=== PATIENT | male | born 1950 | race Hispanic/Latino ===

== ENCOUNTER 2016-12-05 04:30 | Inpatient (IN) | payer OTHER ==
[2016-12-05] MEDS ORDERED: NORMAL SALINE 10 ML SYRINGE FLUSH IVP PRN (04:49)
[2016-12-05] MEDS ORDERED: Sodium Chloride 0.9% 1,000 ML PRIMARY IV ONE ×2 (04:49→13:24)
[2016-12-05] MEDS ORDERED: Ertapenem Inj 1 GM in Sodium Chloride 0.9% 100 ML IV ONE (04:55)
[2016-12-05 04:59] LABS: BLOOD UREA NITROGEN 42 mg/dL (7-22); BUN/CREATININE RATIO 46.66 (6-20); CALCIUM 8.5 mg/dL (8.7-10.7); EST GLOMERULAR FILTRATION > 60 (>60 ml/min/1.73m(2)); SERUM ALBUMIN 3.8 g/dL (3.5-4.8)
[2016-12-05 05:00] LABS: BASOPHILS # (AUTO) 0.02 10*3/UL; BASOPHILS % (AUTO) 0.1 % (0-1); EOSINOPHILS # (AUTO) 0 10*3/UL; EOSINOPHILS % (AUTO) 0 % (0-8); HEMATOCRIT 38.8 % (42.0-52.0); HEMOGLOBIN 12.6 g/dL (14.0-18.0); LYMPHOCYTES # (AUTO) 1.89 10*3/uL; MEAN CORPUSCULAR HEMOGLOBIN 27.2 PG (27-31); MEAN CORPUSCULAR HGB CONC 32.5 g/dL (33-37); MEAN PLATELET VOLUME 9.7 FL (7.4-12.2); MONOCYTES # (AUTO) 1.85 10*3/UL (0.3-0.8); MONOCYTES % (AUTO) 9.7 % (5-15); NEUTROPHILS # (AUTO) 15.17 10*3/UL; NEUTROPHILS % (AUTO) 79.9 % (50-80); RED BLOOD COUNT 4.63 10^6/uL (4.70-6.10)
[2016-12-05] MEDS ORDERED: ERTAPENEM 1 GM VIAL ONE (05:14)
[2016-12-05] MEDS ORDERED: IPRATROPIUM/ALBUTEROL SULFATE 3 ML NEB NEB ONE (05:36)
[2016-12-05 05:46] LABS: WBC MORPHOLOGY COMMENT NORMAL MORPHOLOGY (NORM)
[2016-12-05 05:47] LABS: PLATELET MORPHOLOGY COMMENT NORMAL MORPHOLOGY (NORM); RBC MORPHOLOGY COMMENT NORMAL MORPHOLOGY (NORM)
[2016-12-05 05:55] LABS: ABG BASE EXCESS -5 MMOL/L (-2-2); ABG OXYGEN SATURATION 94 % (90-100); ABG PCO2 32 MMHG (34-38); ABG PO2 70 MMHG (65-75); ALLEN TEST Y; COLLECTION SITE R Rad X1
--- NOTE | 2016-12-05 06:13 | DI ---
HISTORY: Fever and respiratory distress. COMPARISON: None available. FINDINGS: The heart is in the upper limits of normal with slight tortuosity of the dorsal aorta. Th ere is slight accentuation of the pulmonary vasculature in both lower lung mcbride with a band of subs egmental atelectasis in the left lung base. The lung mcbride are otherwise essentially clear. IMPRESSION: 1. Slightly tortuous dorsal aorta. 2. There is slight accentuation of the pulmonary vasculature in both lower lung mcbride with a band of subsegmental atelectasis in the left lung base. Clinical correlation is requested.
--- NOTE | 2016-12-05 08:04 | DI ---
HISTORY: Abdominal pain. Patient is uncooperative. COMPARISON: None available. TECHNIQUE: Multiple helically acquired CT images were obtained through the abdomen without contrast. FINDINGS: Examination demonstrates thickened interstitium within the lung bases. The stomach is unremarkable. The spleen, adrenals and pancreas are unremarkable. There is no eviden ce of stone nor hydronephrosis. A few peripheral vascular calcifications are seen. Mild degenerative changes of the spine are noted. Large and small bowel loops are unremarkable. There are diffuse degenerative changes of the spine. IMPRESSION: 1. Increased interstitial markings within the lung bases. 2. No obstructive uropathy.
--- NOTE | 2016-12-05 08:32 | PDOC ---
Dyspnea HPI - General Chief Complaint: Respiratory Complaint Stated Complaint: RESP DISTRESS Date Seen by Provider: 12/05/16 Time Seen by Provider: 04:36 Source: POSITIVE: Patient, EMS, residential records Exam Limitations: POSITIVE: No limitations Treatment Prior to Arrival: REPORTS: None Nurse's Notes Reviewed & Considered: Yes EMS Report Reviewed & Considered: Verbal - History of Present Illness Initial Comments: The patient is a 66-year-old male who is a resident on the Alzheimer's el at [facility]. He has a long-standing history of dementia, possibly secondary to alcoholism. Patient was noted approximately one hour TODDLER GUIDE to be having some cough and very noisy breathing. He is also noted to be febrile. He was noted to have some emesis on his chin and tongue. Nursing staff reported that he vomited also about 24 hours ago. residential called the ambulance and ambulance brought the patient to the emergency room. On arrival to the emergency room is SaO2 was 84% on 2 L and this went up to around 94% on an FiO2 40% by mask. Paramedics report that they were told by the nursing staff that he may have had some abdominal discomfort yesterday. Patient is a very poor historian because his primary language is Monegasque and he does have dementia. Body Location Affected: REPORTS: Chest Timing: REPORTS: Unknown Duration: <24 hours Severity: Moderate Quality: REPORTS: Other (No obvious pain to the abdomen in the emergency room; intermediate personnel state that the quarried the possibility of abdominal pain earlier yesterday.) Initiating Event: REPORTS: Aspiration (Probable aspiration) Context: REPORTS: Sleep Exacerbated By: DENIES: Exertion, Laying Flat, Coughing Associated Symptoms: REPORTS: Fever, Productive Cough Similar Symptoms Previously: No Recently seen/treated/hospitalized: No Any Prior Injuries Related to Current Complaint?: No - Patient Home Medications Home Medications: Home Medications Acetaminophen [Tylenol] 1 - 2 tab PO Q6H PRN tab 04/01/15 Albuterol Neb Soln 0.083% 2.5 mg NEB QID PRN #1 vial.neb 06/22/16 Amlodipine Besylate [Norvasc] 5 mg PO DAILY #1 tab 06/22/16 Cholecalciferol (Vitamin D3) [Vitamin D3] 1 cap PO QD cap 10/17/16 - Patient Allergies Allergies/Adverse Reactions: Allergies Allergy/AdvReac Type Severity Reaction Status Date / Time amoxicillin Allergy RASH Verified 12/05/16 04:56 Penicillins Allergy RASH Verified 12/05/16 04:56 Past Medical History - heen HEENT History: Denies History Cardiovascular History: Hypertension Respiratory History: Denies History Gastrointestinal History: GERD Genitourinary History: Incontinence Endocrine History: Denies History Musculoskeletal History: Other (please comment) Additional Musculoskeletal History: ABNORMAL GAIT AND MOBILITY Neurological History: Dementia, Other (please comment) 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 Blood Disorders: Denies History Psychiatric History: Denies History History of Sexually Transmitted Diseases: No Cancer History: Denies History In Past Year Been Physically Harmed or Verbally Threatened: No History of MDRO: Unknown History of Other Communicable Diseases: No Tobacco Use: Former Smoker Alcohol Use: Sober Substance Use Type: None Previous Surgical History: No Significant Family History: No pertinent family hx Past Medical History Reviewed: Reviewed - No Changes ROS - Limitations ROS Limitations: Clinical Condition (Patient has dementia and therefore cannot give a good review of systems), Language Barrier (Patient's primary tongue is Monegasque.), Other (please comment) (Cold lateral review of systems obtained from intermediate staff) Constitution: REPORTS: Fever Cardiovascular: REPORTS: Denies Cardiac Symptoms Respiratory: REPORTS: Cough Productive, Shortness Of Breath Neurological: REPORTS: Denies Neuro Symptoms Gastrointestinal: REPORTS: Vomitting Endocrine: REPORTS: Denies Symptoms Musculoskeletal: REPORTS: Denies MS Symptoms Genitourinary: REPORTS: Denies Symptoms Eyes: REPORTS: Denies Symptoms ENT: REPORTS: Denies Symptoms Skin: REPORTS: Denies Skin Symptoms Lympathic: REPORTS: Denies Lympathic Symptoms Immunologic: POSITIVE: Denies Symptoms Psychiatric: POSITIVE: Confusion (Chronically) Dyspnea Physical Exam - General Appearance General Appearance: REPORTS: No Acute Distress (Hypoxic; in some respiratory distress) - HEENT HEENT: POSITIVE: Head Inspection Nml, Eyes Inspection Nml, Ears Inspection Nml, Nose Inspection Nml, Oral/Dental Inspect. Nml, Pharynx Inspect. Nml, PERRL, EOMI - Neck Neck: REPORTS: Normal Inspection, No Carotid Bruit - Respiratory Respiratory: REPORTS: Respiratory Distress, Rales, Rhonchi. DENIES: Prolonged Expirations, Accessory Muscle Use, Retractions, Splinting, Dull on Percussion, Decreased Air Movement, Chest Wall Tenderness, Speaks Broken Sentences, Stridor - Cardiovascular Cardiovascular: REPORTS: Regular Rate and Rhythm, Heart Sounds Normal, Equal Pulses, Strong Pulses, No Murmur, No Gallop, No Friction Rub, No JVD Peripheral Pulses: Radial (R): 2+, Radial (L): 2+, Femoral (R): 2+, Femoral (L) : 2+ - Abdomen Abdomen: Soft: (All Quadrants), Normal Bowel Sounds: (All Quadrants), Denies Tenderness: (All Quadrants), No Splenomegaly: (All Quadrants), No Hepatomegaly: (All Quadrants), No Guarding: (All Quadrants), No Rebound: (All Quadrants), No Palpable Pulse: (All Quadrants), No Palpabale Mass: (All Quadrants), No Distention: (All Quadrants), No Rigidity: (All Quadrants) - Skin Skin: REPORTS: Intact, Normal For Race, Warm, Dry, No Rash - Extremities Extremity: Non-Tender: (All Extremities), Normal ROM: (All Extremities), Normal Inspection: (All Extremities) - Neurological / Psychological Neurological: POSITIVE: Oriented X3, epic specialist Normal As Tested, Motor Normal, Sensation Normal, 5, 6 Dyspnea Progress - Results Reviewed by me Xrays/CTs/US Reviewed by me: Yes Discussed with Radiologist: No Radiology Findings: Chest x-ray shows bilateral lower lobe infiltrates, especially on the left. CT scan of abdomen and pelvis is normal except for interstitial infiltrates in both lung bases. Lab Results Reviewed: Yes (blood cultures drawn) Lab Results:: Laboratory Results 12/05/16 12/05/16 12/05/16 Range/Units 04:59 05:00 05:26 WBC 18.98 H (4.8-10.8) 10^3/uL RBC 4.63 L (4.70-6.10) 10^6/uL Hgb 12.6 L (14.0-18.0) g/dL Hct 38.8 L (42.0-52.0) % MCV 83.8 (80-90) FL MCH 27.2 (27-31) PG MCHC 32.5 L (33-37) g/dL RDW Std Deviation 46.8 (39-50) fL RDW Coeff of Lucia 15.7 H (11.5-14.5) % Plt Count 330 (140-350) 10*3/uL MPV 9.7 (7.4-12.2) FL Immature Gran % (Auto) 0.3 (0-5) % Neut % (Auto) 79.9 (50-80) % Lymph % (Auto) 10.0 (10-50) % Bowman % (Auto) 9.7 (5-15) % Eos % (Auto) 0 (0-8) % Baso % (Auto) 0.1 (0-1) % Immature Gran # (Auto) 0.05 10*3/UL Neut # (Auto) 15.17 10*3/UL Lymph # (Auto) 1.89 10*3/uL Bowman # (Auto) 1.85 H (0.3-0.8) 10*3/UL Eos # (Auto) 0 10*3/UL Baso # (Auto) 0.02 10*3/UL WBC Morphology Comment Normal morphology (NORM) Plt Morphology Comment Normal morphology (NORM) RBC Morph Comment Normal morphology (NORM) ABG pH 7.40 (7.35-7.45) ABG pCO2 32 L (34-38) MMHG ABG pO2 70 (65-75) MMHG ABG HCO3 20 L (22-26) ABG Total CO2 20 L (23-27) MMOL/L ABG O2 Saturation 94 (90-100) % ABG Base Excess -5 L (-2-2) MMOL/L Kevin Test Y FiO2 10lpm simple mask Sodium 148 H (135-145) meq/L Potassium 4.3 (3.8-5.2) meq/L Chloride 111 (98-112) meq/L Carbon Dioxide 22 L (23-33) meq/L Anion Gap 15 (5-20) BUN 42 H (7-22) mg/dL Creatinine 0.9 (0.70-1.50) mg/dL Estimated GFR > 60 (>60 ml/min/1.73m(2)) BUN/Creatinine Ratio 46.66 H (6-20) Glucose 178 H (78-110) mg/dL Calculated Osmolality 320.0 H (267-292) mOsm/kg Lactic Acid 2.1 (0.70-2.10) MMOL/L Calcium 8.5 L (8.7-10.7) mg/dL Total Bilirubin 0.4 (0.3-1.2) mg/dL AST 21 (21-57) IU/L ALT 18 L (21-72) IU/L Alkaline Phosphatase 86 (38-126) IU/L Troponin I < 0.012 (< 0.040) ng/mL Total Protein 6.8 (6.1-8.0) g/dL Albumin 3.8 (3.5-4.8) g/dL Globulin 3.0 (2.50-4.10) g/dL Albumin/Globulin Ratio 1.20 L (1.3-2.0) mg/g - Patient's Progress Pain Medication Addressed: POSITIVE: Not Applicable School/Work Release Addressed: POSITIVE: Not Applicable Re-Examine Time: 07:00 Re-Examine Comment: Patient maintaining saturations with oxygen supplementation. Nebulizer treatments 2 given. Blood cultures drawn and then 1 g of Invanz IV given. Some improvement after neb treatments Re-Examine Time:: 08:15 Re-Examine Comment: Case discussed with Dr. Dupree, hospitalist, and arrangements made for admission Status: POSITIVE: Improved, Re-Examined Air Movement: POSITIVE: Fair Quality Measure Initiative: CAP: POSITIVE: SaO2, Antibiotic(s), BC, CXR or CT - Consult Consult (If Yes, Name of Consulting MD & Time Called): Yes (Dr. Dupree, hospitalist [id number],) Consulting MD will see pt:: POSITIVE: [facility] Admit Counseled: POSITIVE: Patient, RE: Lab Results, RE: Radiology Results, RE: DX, RE : Need for F/U Patient Care Time - Estimated PCT Patient Care Time (In Minutes): 60 Vital Signs - Recent Vital Signs Vital Signs: Vital Signs (Last 8 hours) Temp Pulse Resp BP Pulse Ox 12/05/16 04:30 100.4 F H 151 H 40 H 165/87 90 - VS Reviewed Vital Signs Reviewed: Yes Discharge Clinical Impression: Pneumonia Discharge Disposition: Admit to Inpatient Date Decision to Admit to Inpatient: 12/05/16 Time Decision to Admit to Inpatient: 07:30
[2016-12-05] MEDS ORDERED: LIDOCAINE W/ SODIUM BICARB 0.5 ML SYR SUBD PRN (09:29)
[2016-12-05] MEDS ORDERED: ACETAMINOPHEN 325 MG TABLET PO PRN (09:29)
[2016-12-05] MEDS ORDERED: ALBUTEROL SULFATE 2.5 MG/3 ML NEB PRN (09:29)
[2016-12-05] MEDS ORDERED: ONDANSETRON 4 MG/2 ML VIAL IVP PRN (09:29)
--- NOTE | 2016-12-05 10:38 | PDOC ---
History and Physical - History of Present Illness Date and Time of Service: 12/05/2016, 1040 Chief Complaint: Altered History of Present Illness: This is a 66-year-old family Bengali-speaking male who has been placed in [facility] a while back due to dementia, alcohol abuse, tobacco abuse issues. He comes in today brought in by ambulance from the halfway having been found apparently to have abdominal pain and also to be hypoxic. He could not provide a history. It was felt that he probably had pneumonia although his chest x-ray was negative for infiltrate. The CT of his abdomen and pelvis, was done due to in part to complaints of abdominal pain yesterday, and some vomiting apparently that was witnessed. He had a fever at the time of presentation. On my exam, he cannot provide any history of present illness, is requiring oxygen, which she is normally not on, but does not have an active cough. He is not able to follow commands. He is alert. History was severely compromised by his dementia. Given his fever, oxygen requirement, lack of infiltrate, I think we need to do further investigative workup to make sure there is no pulmonary emboli or an infiltrate noticed on CT scan. Atelectasis was noted in the base of the lungs on the CT scan of the abdomen and pelvis. Influenza studies were done on the inpatient side which were negative. This could also be a COPD exacerbation. Past Medical History Medical History: 1. 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 2. History of tobacco abuse. 3. Reportedly, patient had extrapyramidal syndrome. He is no longer on Sinemet and has not been on that for quite some time now. 4. Urinary incontinence Surgical History: I cannot obtain this from the patient due to his dementia. Pertinent Family History: I cannot obtain this information from the patient due to his dementia. Past Social History: From my review of the medical record, the patient had a history of smoking and drinking heavily prior to his admission to [facility]. Apparently, he is and his lives in [place], [place]. Tobacco Use: Former Smoker Substance Use Type: None Alcohol Use: None (Currently none, but did use in the past.) Medication / Allergies Home Medications: Home Medications Medication Instructions Recorded Confirmed Type Acetaminophen [Tylenol] 1 - 2 tab PO Q6H PRN tab 04/01/15 06/21/16 History Albuterol Neb Soln 0.083% 2.5 mg NEB QID PRN #1 vial.neb 06/22/16 Rx Amlodipine Besylate [Norvasc] 5 mg PO DAILY #1 tab 06/22/16 Rx Cholecalciferol (Vitamin D3) 1 cap PO QD cap 10/17/16 History [Vitamin D3] Allergies/Adverse Reactions: Allergies Allergy/AdvReac Type Severity Reaction Status Date / Time amoxicillin Allergy RASH Verified 12/05/16 04:56 Penicillins Allergy RASH Verified 12/05/16 04:56 Review of Systems - Review of Systems ROS Unobtainable: Due to Mental Status (I cannot obtain a review of systems due to the patient's dementia.) Exam - Vitals Vital Signs: Vital Signs Temperature 97.8 F Temperature Source Temporal Artery Scan Pulse Rate [Pulse Oximeter] 129 Pulse Rate [Telemetry] 151 Pulse Rate 127 Respiratory Rate 24 Blood Pressure [Right Arm] 165/87 Blood Pressure 132/84 Pulse Ox 99 Oxygen Flow Rate 10 Oxygen Delivery Method Mask-Simple Height 5 ft 6 in Weight 147 lb 9.6 oz - General General Appearance: POSITIVE: Cooperative, Mild Distress - Head Head Exam: POSITIVE: Normal Inspection, Normocephalic, Atraumatic - Eye Eye Exam: POSITIVE: No Scleral Icterus - ENT ENT Exam: POSITIVE: Mucous Membranes Dry - Respiratory Respiratory Exam: POSITIVE: Clear to Auscultation - Bilaterally, Breathing Non Labored - Cardiovascular Cardiovascular Exam: POSITIVE: No Murmur, No Clicks, No Gallops, No Rubs, Tachycardia - GI/Abdominal GI/Abdominal Exam: POSITIVE: Normal Bowel Sounds, Non Tender, Non Distended, Soft - Rectal Rectal Exam: POSITIVE: Deferred - External Exam: POSITIVE: Deferred Exam: POSITIVE: Deferred - Extremities Extremities Exam: POSITIVE: No Clubbing Present, No Edema Present, No Cyanosis Present - Neurological Neurological Exam: POSITIVE: Alert, No Facial Droop, Moves All Extremities Equally - Integumentary Integumentary Exam: POSITIVE: Normal Color, Warm, Dry, Intact Results - Labs CBC and BMP: 12/05/16 05:00 12/05/16 04:59 Labs - Last 24 Hours: Laboratory Results 12/05/16 12/05/16 12/05/16 Range/Units 04:59 05:00 05:26 WBC 18.98 H (4.8-10.8) 10^3/uL RBC 4.63 L (4.70-6.10) 10^6/uL Hgb 12.6 L (14.0-18.0) g/dL Hct 38.8 L (42.0-52.0) % MCV 83.8 (80-90) FL MCH 27.2 (27-31) PG MCHC 32.5 L (33-37) g/dL RDW Std Deviation 46.8 (39-50) fL RDW Coeff of Lucia 15.7 H (11.5-14.5) % Plt Count 330 (140-350) 10*3/uL MPV 9.7 (7.4-12.2) FL Immature Gran % (Auto) 0.3 (0-5) % Neut % (Auto) 79.9 (50-80) % Lymph % (Auto) 10.0 (10-50) % [place] % (Auto) 9.7 (5-15) % Eos % (Auto) 0 (0-8) % Baso % (Auto) 0.1 (0-1) % Immature Gran # (Auto) 0.05 10*3/UL Neut # (Auto) 15.17 10*3/UL Lymph # (Auto) 1.89 10*3/uL [place] # (Auto) 1.85 H (0.3-0.8) 10*3/UL Eos # (Auto) 0 10*3/UL Baso # (Auto) 0.02 10*3/UL WBC Morphology Comment Normal morphology (NORM) Plt Morphology Comment Normal morphology (NORM) RBC Morph Comment Normal morphology (NORM) ABG pH 7.40 (7.35-7.45) ABG pCO2 32 L (34-38) MMHG ABG pO2 70 (65-75) MMHG ABG HCO3 20 L (22-26) ABG Total CO2 20 L (23-27) MMOL/L ABG O2 Saturation 94 (90-100) % ABG Base Excess -5 L (-2-2) MMOL/L Kevin Test Y FiO2 10lpm simple mask Sodium 148 H (135-145) meq/L Potassium 4.3 (3.8-5.2) meq/L Chloride 111 (98-112) meq/L Carbon Dioxide 22 L (23-33) meq/L Anion Gap 15 (5-20) BUN 42 H (7-22) mg/dL Creatinine 0.9 (0.70-1.50) mg/dL Estimated GFR > 60 (>60 ml/min/1.73m(2)) BUN/Creatinine Ratio 46.66 H (6-20) Glucose 178 H (78-110) mg/dL Calculated Osmolality 320.0 H (267-292) mOsm/kg Lactic Acid 2.1 (0.70-2.10) MMOL/L Calcium 8.5 L (8.7-10.7) mg/dL Total Bilirubin 0.4 (0.3-1.2) mg/dL AST 21 (21-57) IU/L ALT 18 L (21-72) IU/L Alkaline Phosphatase 86 (38-126) IU/L Troponin I < 0.012 (< 0.040) ng/mL Total Protein 6.8 (6.1-8.0) g/dL Albumin 3.8 (3.5-4.8) g/dL Globulin 3.0 (2.50-4.10) g/dL Albumin/Globulin Ratio 1.20 L (1.3-2.0) mg/g - Imaging Status: Image Reviewed by Me (Chest x-ray, on my view, negative for pneumonia. CT scan of the abdomen and pelvis was done, it appeared normal on my review. The radiologist felt it was normal other than some atelectasis in the lower lung base.) Assessment and Plan - Patient Problems (1) Respiratory insufficiency Current Visit: Yes Status: Acute (2) Fever Current Visit: Yes Status: Acute Qualifiers: Fever type: unspecified Qualified Description: Fever, unspecified fever cause Qualifier Code(s): (R50.9) Fever, unspecified (3) Tachycardia Current Visit: Yes Status: Acute (4) Alcoholic dementia Current Visit: Yes Status: Acute Qualifiers: Dementia behavioral disturbance: without behavioral disturbance Qualified Description: Dementia associated with alcoholism without behavioral disturbance Qualifier Code(s): (F10.97) Alcohol use, unspecified with alcohol-induced persisting dementia (5) History of tobacco abuse Current Visit: Yes Status: Acute (6) Urinary incontinence Current Visit: Yes Status: Acute Qualifiers: Urinary Incontinence type: unspecified incontinence Qualified Description: Urinary incontinence, unspecified type Qualifier Code(s): ( R32) Unspecified urinary incontinence - Assessment / Plan Additional Assessment/Plan Details: Admit the patient. This certainly could be pneumonia, but I don't have any proof of that radiographically at this point, despite the white blood cell count elevation, fever, tachycardia, this could still be pulmonary emboli and no infiltrate was noted on chest x-ray. Influenza studies were thankfully negative. IV fluids. Could be a COPD exacerbation and I think antibiotics and steroids may be the dawson here to help the patient get better as well as oxygen as indicated. Overall prognosis is very guarded. His pneumonia severity index is 109, class for pneumonia with a mortality of 8.2%. Check labs tomorrow. Try to get hold of family to discuss further with him.
[2016-12-05] MEDS ORDERED: Levofloxacin 750mg (Premix) 750 MG in Dextrose 1 BAG IV ONE (10:50)
[2016-12-05] MEDS: Sodium Chloride 0.9% 1,000 ML PRIMARY IV SCH ×2 (11:07→17:40)
--- NOTE | 2016-12-05 11:43 | EKG ---
[address] [place] [address] Measurements Intervals [place] Rate: 120 P: 69 [place]: 133 QRS: -72 QRSD: 125 T: 57 QT: 334 QTc: 405 Interpretive Statements SINUS TACHYCARDIA RIGHT BUNDLE BRANCH BLOCK LEFT ANTERIOR FASCICULAR BLOCK [QRS AXIS <= -45, QR IN I, RS IN II] No previous ECG available for comparison Electronically Signed On 12-05-16 16:02:35 MDT by Yoel Combs [email or web address]
[2016-12-05] MEDS: AmLODIPine Tab 5 MG TABLET PO SCH (12:06)
[2016-12-05] MEDS: methylPREDNISolone 125 MG/2 ML VIAL IVP SCH ×2 (13:54→19:31)
--- NOTE | 2016-12-05 16:50 | DI ---
CT ANGIOGRAM OF THE CHEST, 12/05/2016 10:08 AM : Clinical History: Shortness of breath. Previous Exam: None at this facility. Scans are performed from the base of the neck to the lower lung bases following IV administration of 65 mL of Isovue 300. Proprietary automated bolus tracking software was used to verify the timing of t he injection. There are artifacts present on these scans because the patient could not hold his breat h or at least could not understand instructions to hold his breath, and both arms were positioned at his side. The base of the neck and thoracic inlet are normal. There are no abnormal axillary, supraclavicular, mediastinal, or hilar nodes. Coronary artery calcifications are present in the LAD and in the left ma instem. The heart size is normal. The pulmonary arteries are normal. There is no pulmonary arterial h ypertension. There is no evidence of pulmonary embolism out to the third order branches. The smaller branches are obscured by artifacts. There are no infiltrates or effusions. There are bullae in the le ft upper lobe indicating bullous emphysema. There are punctate calcifications in both lungs measuring in size between 3-5 mm consistent with old granulomatous disease. Both adrenal glands and the spleen as well as the visualized portions of the liver and pancreas are normal. READIN. The patient was breathing during this exam and both arms are positioned at his side. Therefore, t he sensitivity and specificity of this exam is diminished. 2. There is no evidence of pulmonary arterial hypertension or pulmonary embolism at least to the thi rd order branches. 3. Coronary artery disease. Old granulomatous disease.
[2016-12-06] MEDS: Sodium Chloride 0.9% 1,000 ML PRIMARY IV SCH ×3 (01:52→23:02)
[2016-12-06] MEDS: methylPREDNISolone 125 MG/2 ML VIAL IVP SCH ×3 (02:03→15:49)
[2016-12-06] MEDS: NORMAL SALINE 10 ML SYRINGE FLUSH IVP PRN ×2 (02:04→08:30)
[2016-12-06] MEDS: AmLODIPine Tab 5 MG TABLET PO SCH (08:30)
[2016-12-06] MEDS ORDERED: Levofloxacin 750mg (Premix) 750 MG in Dextrose 1 BAG IV SCH (09:00)
--- NOTE | 2016-12-06 09:16 | DI ---
CT HEAD SCAN WITHOUT IV CONTRAST, 12/06/2016 7:30 AM : Clinical History: Altered mental status. Previous Exam: 09/06/2016; 09/23/2016 (CT angiogram of the [place]), and an MRI brain scan w ithout contrast on 09/22/2016.. Scans are obtained from the foramen magnum to the vertex without IV contrast. The fourth ventricle is of normal size, shape, position and contour. The third and lateral ventricles are moderately dilated but are otherwise normal. There is no evidence of an acute intracranial hemor rhagic or bland infarct. There are old lacunar infarcts involving the right thalamus, the body of the right caudate nucleus, and these were present on the MRI scan. There are multiple punctate periventr icular white matter lucencies bilaterally that extend into the watershed territory, consistent with s mall vessel ischemic disease. This amount of ischemic disease is appropriate for the patient's age. T here is diffuse moderately severe cerebellar, brainstem, and cerebral atrophy. This pattern is typica lly associated with patients who have chronic alcohol or Dilantin usage. There are no extracerebral m antles or shift of the midline structures. Bone window evaluation is normal. The paranasal sinuses ar e normal. READIN. There is no acute hemorrhagic or bland infarct. 2. Old lacunar infarcts of the body of the right caudate nucleus and the right thalamus. 3. Small vessel ischemic disease. 4. Diffuse cerebellar, brainstem, and cerebral atrophy. This typically is associated with chronic al cohol or Dilantin usage.
[2016-12-06] MEDS ORDERED: Pantoprazole Inj 40 MG in Normal Saline Flush 10 ML IVP ONE (15:21)
[2016-12-06 15:39] LABS: HEMATOCRIT 28.8 % (42.0-52.0); HEMOGLOBIN 9.1 g/dL (14.0-18.0); MEAN CORPUSCULAR HEMOGLOBIN 26.6 PG (27-31); MEAN CORPUSCULAR HGB CONC 31.6 g/dL (33-37); MEAN PLATELET VOLUME 9.4 FL (7.4-12.2); RED BLOOD COUNT 3.42 10^6/uL (4.70-6.10)
[2016-12-06 15:50] LABS: BLOOD UREA NITROGEN 21 mg/dL (7-22); CALCIUM 8.1 mg/dL (8.7-10.7); EST GLOMERULAR FILTRATION > 60 (>60 ml/min/1.73m(2))
--- NOTE | 2016-12-06 16:46 | PDOC(PROG) ---
Date and Time of Service: 12/06/2016, 1640 Interval History: Confused, complaining of some abdominal pain. Through the afternoon, the patient developed some very dark and bloody stool which was confirmed by Hemoccult. He then had emesis with coffee-ground emesis. I spoke with his , Tri, at [phone], and we discussed the patient's current medical condition, his underlying chronic alcoholic dementia, and what appears to be an active bleed, probably a peptic ulcer or duodenal ulcer. After significant discussion of risks and benefits of workup with EGD for surgical consultation, Tri felt that the patient's wish in this situation would be to proceed with the most conservative care and stay away from aggressive care. She still stated to me that she felt that he would be okay if he did pass away from a condition like this as he did not want to live in a fpc long-term, and he has underlying severe alcoholic dementia that is not getting better. She does not want me to proceed with any surgical consultation or EGD at this time. She is okay with Protonix. Objective : Data - Labs CBC and BMP: 12/06/16 15:34 12/06/16 15:34 Labs - Last 24 Hours: Laboratory Results 12/06/16 12/06/16 Range/Units 14:49 15:34 WBC 13.99 H (4.8-10.8) 10^3/uL RBC 3.42 L (4.70-6.10) 10^6/uL Hgb 9.1 L (14.0-18.0) g/dL Hct 28.8 L (42.0-52.0) % MCV 84.2 (80-90) FL MCH 26.6 L (27-31) PG MCHC 31.6 L (33-37) g/dL RDW Std Deviation 45.8 (39-50) fL RDW Coeff of Lucia 15.4 H (11.5-14.5) % Plt Count 239 (140-350) 10*3/uL MPV 9.4 (7.4-12.2) FL Sodium 142 (135-145) meq/L Potassium 3.5 L (3.8-5.2) meq/L Chloride 110 (98-112) meq/L Carbon Dioxide 23 (23-33) meq/L Anion Gap 9 (5-20) BUN 21 (7-22) mg/dL Creatinine 0.6 L (0.70-1.50) mg/dL Estimated GFR > 60 (>60 ml/min/1.73m(2)) BUN/Creatinine Ratio 35.00 H (6-20) Glucose 166 H (78-110) mg/dL Calculated Osmolality 300.0 H (267-292) mOsm/kg Calcium 8.1 L (8.7-10.7) mg/dL Stool Occult Blood Positive (NEGATIVE) Objective : Exam - General General Appearance: Cooperative Additional General Exam Details: Vital Signs - Last Taken Temperature 98.2 F 12/06/16 16:10 Pulse Rate 116 H 12/06/16 16:10 Respiratory Rate 24 12/06/16 16:10 Blood Pressure 158/88 12/06/16 16:10 Pulse Ox 93 12/06/16 16:10 Wheezing. - Eye Eye Exam: No Scleral Icterus - Respiratory Respiratory Exam: Decreased Breath Sounds, Wheezes, Coarse Breath Sounds - Cardiovascular Cardiovascular Exam: RRR, No Murmur, No Clicks, No Gallops, No Rubs, No JVD - GI/Abdominal GI/Abdominal Exam: Normal Bowel Sounds, Non Distended, Soft Additional GI/Abdominal Exam Details: Tender and right upper quadrant and midepigastric region. - Extremities Extremities Exam: No Clubbing Present, No Edema Present, No Cyanosis Present - Neurological Neurological Exam: Alert, No Facial Droop, Speech Intact / Clear, Moves All Extremities Equally Additional Neurological Exam Details: Not oriented to place, time, or situation. Assessment and Plan - Patient Problems (1) GI bleed Current Visit: Yes Status: Acute (2) COPD exacerbation Current Visit: Yes Status: Acute (3) Acute blood loss anemia Current Visit: Yes Status: Acute (4) Respiratory insufficiency Current Visit: Yes Status: Acute (5) Tachycardia Current Visit: Yes Status: Acute (6) Alcoholic dementia Current Visit: Yes Status: Acute Qualifiers: Dementia behavioral disturbance: without behavioral disturbance Qualified Description: Dementia associated with alcoholism without behavioral disturbance Qualifier Code(s): (F10.97) Alcohol use, unspecified with alcohol-induced persisting dementia (7) History of tobacco abuse Current Visit: Yes Status: Acute (8) Urinary incontinence Current Visit: Yes Status: Acute Qualifiers: Urinary Incontinence type: unspecified incontinence Qualified Description: Urinary incontinence, unspecified type Qualifier Code(s): ( R32) Unspecified urinary incontinence (9) Fever Current Visit: Yes Status: Resolved Qualifiers: Fever type: unspecified Qualified Description: Fever, unspecified fever cause Qualifier Code(s): (R50.9) Fever, unspecified - Assessment / Plan Additional Assessment/Plan Details: This very complex situation in which we have a patient with severe alcoholic dementia, who is been in the fpc for some time and will not be getting better. He had wishes for no CPR but did not have any decisions made for procedures, antibiotics, or surgeries. I spoke to his , and she stated that she did not think the patient would want anything that would prolong his time in the fpc with his dementia. She requested that I treat him conservatively with Protonix and medications for this GI bleed, but to not proceed with surgical consultation or EGD. I'm inclined at this time to agree that that would be reasonable management for this patient given his the long- term debilitating disease that he has and the overall course of his time in the fpc. I will also inform the patient's primary care provider of this. Overall prognosis very guarded. Likely the patient will . Continue Levaquin for pneumonia but stopped steroids in the setting of a GI bleed. We'll write for pain medications given that he is complaining of some abdominal pain. Keep nothing by mouth for now. Also in addition to Protonix and octreotide.
[2016-12-06] MEDS: OCTREOTIDE ACETATE 50 MCG/1 ML VIAL OR AMP IVP SCH (17:22)
[2016-12-06] MEDS: Pantoprazole Inj 40 MG in Normal Saline Flush 10 ML IVP SCH (21:00)
[2016-12-07] MEDS: Sodium Chloride 0.9% 1,000 ML PRIMARY IV SCH ×3 (01:48→21:55)
[2016-12-07] MEDS: OCTREOTIDE ACETATE 50 MCG/1 ML VIAL OR AMP IVP SCH ×3 (01:48→16:56)
[2016-12-07 06:20] LABS: HEMATOCRIT 24.4 % (42.0-52.0); HEMOGLOBIN 7.7 g/dL (14.0-18.0); MEAN CORPUSCULAR HEMOGLOBIN 26.8 PG (27-31); MEAN CORPUSCULAR HGB CONC 31.6 g/dL (33-37); RED BLOOD COUNT 2.87 10^6/uL (4.70-6.10)
[2016-12-07 06:31] LABS: BLOOD UREA NITROGEN 20 mg/dL (7-22); BUN/CREATININE RATIO 28.57 (6-20); CALCIUM 7.8 mg/dL (8.7-10.7); EST GLOMERULAR FILTRATION > 60 (>60 ml/min/1.73m(2))
[2016-12-07] MEDS ORDERED: predniSONE Tab 20 MG, predniSONE Tab 10 MG PO SCH ×2 (09:00)
[2016-12-07] MEDS: Levofloxacin 750mg (Premix) 750 MG in Dextrose 1 BAG IV SCH (09:10)
[2016-12-07] MEDS: Pantoprazole Inj 40 MG in Normal Saline Flush 10 ML IVP SCH (09:11)
[2016-12-07] MEDS: AmLODIPine Tab 5 MG TABLET PO SCH (09:12)
[2016-12-07] MEDS: HYDROmorphone 2 MG/1 ML IVP PRN (11:24)
--- NOTE | 2016-12-07 13:15 | PDOC(PROG) ---
Date and Time of Service: 12/07/2016, 1314 Interval History: Complains of pain in his abdomen, once to drink water. Otherwise history is compromised by his dementia. I spoke to the patient's in depth yesterday, please see yesterday's note. On a conservative manner of treatment, I think we should continue Protonix and octreotide. Blood is not low enough at this point to do transfusion, but I do think it would be prudent to do a CT scan of the abdomen and pelvis to see if there is any source of bleeding there that may change prognosis. If for example, the prognosis is quite poor, we may consider management of pain with opiates parenterally. Objective : Data - Labs CBC and BMP: 12/07/16 05:45 12/07/16 05:45 Labs - Last 24 Hours: Laboratory Results 12/06/16 12/06/16 12/07/16 Range/Units 14:49 15:34 05:45 WBC 13.99 H 10.56 (4.8-10.8) 10^3/uL RBC 3.42 L 2.87 L (4.70-6.10) 10^6/uL Hgb 9.1 L 7.7 L (14.0-18.0) g/dL Hct 28.8 L 24.4 L (42.0-52.0) % MCV 84.2 85.0 (80-90) FL MCH 26.6 L 26.8 L (27-31) PG MCHC 31.6 L 31.6 L (33-37) g/dL RDW Std Deviation 45.8 46.3 (39-50) fL RDW Coeff of Lucia 15.4 H 15.5 H (11.5-14.5) % Plt Count 239 224 (140-350) 10*3/uL MPV 9.4 10.0 (7.4-12.2) FL Sodium 142 143 (135-145) meq/L Potassium 3.5 L 3.9 (3.8-5.2) meq/L Chloride 110 112 (98-112) meq/L Carbon Dioxide 23 23 (23-33) meq/L Anion Gap 9 8 (5-20) BUN 21 20 (7-22) mg/dL Creatinine 0.6 L 0.7 (0.70-1.50) mg/dL Estimated GFR > 60 > 60 (>60 ml/min/1.73m(2)) BUN/Creatinine Ratio 35.00 H 28.57 H (6-20) Glucose 166 H 125 H (78-110) mg/dL Calculated Osmolality 300.0 H 299.0 H (267-292) mOsm/kg Calcium 8.1 L 7.8 L (8.7-10.7) mg/dL Stool Occult Blood Positive (NEGATIVE) Objective : Exam - General General Appearance: No Acute Distress, Cooperative Additional General Exam Details: Vital Signs - Last Taken Temperature 97.4 F 12/07/16 07:03 Pulse Rate 89 12/07/16 07:03 Respiratory Rate 20 12/07/16 07:03 Blood Pressure 115/72 12/07/16 07:03 Pulse Ox 93 12/07/16 07:03 - Eye Eye Exam: No Scleral Icterus - Respiratory Respiratory Exam: Clear to Auscultation - Bilaterally, Breathing Non Labored - Cardiovascular Cardiovascular Exam: RRR, No Murmur, No Clicks, No Gallops, No Rubs - GI/Abdominal GI/Abdominal Exam: Normal Bowel Sounds, Non Distended, Soft Additional GI/Abdominal Exam Details: Tender to palpation mid epigastric and right lower and mid quadrant. - Extremities Extremities Exam: No Clubbing Present, No Edema Present, No Cyanosis Present - Neurological Neurological Exam: Alert, No Facial Droop, Speech Intact / Clear, Moves All Extremities Equally Additional Neurological Exam Details: Altered and has no orientation to place, time, or situation. Assessment and Plan - Patient Problems (1) GI bleed Current Visit: Yes Status: Acute Qualifiers: GI bleed type/associated pathology: unspecified gastrointestinal hemorrhage type Qualified Description: Gastrointestinal hemorrhage, unspecified gastrointestinal hemorrhage type Qualifier Code(s): (K92.2) Gastrointestinal hemorrhage, unspecified (2) COPD exacerbation Current Visit: Yes Status: Acute (3) Acute blood loss anemia Current Visit: Yes Status: Acute (4) Respiratory insufficiency Current Visit: Yes Status: Acute (5) Tachycardia Current Visit: Yes Status: Acute (6) Alcoholic dementia Current Visit: Yes Status: Acute Qualifiers: Dementia behavioral disturbance: without behavioral disturbance Qualified Description: Dementia associated with alcoholism without behavioral disturbance Qualifier Code(s): (F10.97) Alcohol use, unspecified with alcohol-induced persisting dementia (7) History of tobacco abuse Current Visit: Yes Status: Acute (8) Urinary incontinence Current Visit: Yes Status: Acute Qualifiers: Urinary Incontinence type: unspecified incontinence Qualified Description: Urinary incontinence, unspecified type Qualifier Code(s): ( R32) Unspecified urinary incontinence - Assessment / Plan Additional Assessment/Plan Details: At this point, I think a CT scan of the abdomen and pelvis may help out prognostically for the patient. For example if there is a perforation or something that we cannot treat, treating the patient's primary symptoms of pain and discomfort would seem appropriate given his extensive problems with dementia and overall decline. Hold off on blood transfusion today. Check CBC tomorrow. Continue Protonix and octreotide to try and stop bleed. The patient's Tri, was quite clear that she did not want any extreme measures or surgical procedures to be done on this patient given his poor prognosis with advanced alcoholic dementia.
--- NOTE | 2016-12-07 14:53 | DI ---
CT ABDOMEN SCAN WITH IV CONTRAST, 12/07/2016 1:11 PM : Clinical History: GI bleed. Abdominal pain. Previous Exam: 12/05/2016. Comparison is also made with a CT angiogram of the chest from 12/05/2016. Scans are performed from the lower lung bases through the liver and kidneys with IV contrast. 75 ml o f Isovue 300 was injected IV. Small bilateral pleural effusions are present. The liver is normal. 1-2 mm radiodensity in the depend ent portion of the gallbladder and this may represent a small gallstone. There is no thickening of th e gallbladder wall or lucency to indicate acute cholecystitis. The stomach is moderately dilated. The re are prior CT scans where the stomach was given more dilated (CTA chest, 10/07/2016). On that study and the current exam, the posterior wall of the fundus has the appearance of marked thickening of the mucosa. This can be an artifact secondary to incomplete distention of the fundus of the stomach, but acute gastritis localized to the fundus cannot be excluded. There is also increased density in the d istal esophagus roughly 2 cm proximal to the diaphragm and an esophageal lesion cannot be excluded. T here is no evidence of esophageal or gastric varices. There is no abnormality of the spleen, pancreas , and adrenal glands. Both kidneys are normal in size, shape, position and contour. There is no hydro nephrosis or hydroureter. No renal or ureteral calculi are present. There are no abnormal retrocrural or periaortic nodes. No ascites is present. READIN. The posterior gastric wall in the fundus is substantially thickened compared to the remaining por tions of the stomach. This may represent an artifact secondary to incomplete distention of the fundus , but an acute gastritis cannot entirely be excluded. There is a focus of increased density in the di stal esophagus roughly 2 cm from the GE junction. This may also be within normal limits but an esopha geal lesion also cannot entirely be excluded. There are no esophageal or gastric varices. 2. The remainder of the study is normal. CT PELVIS SCAN WITH IV CONTRAST, 12/07/2016 1:11 PM: Clinical History: See above. Previous Exam: None at this facility. Scans are performed from just superior to the umbilicus to the symphysis pubis with IV contrast. This is the same bolus of contrast used for the CT scans of the abdomen. Scans through the lower abdomen and pelvis show no masses or abnormal fluid collections. There is no adenopathy. The appendix is normal. The small bowel, terminal ileum, and ileocecal valve are normal. The colon is also normal. There are no hernias. READING: Normal CT scan of the pelvis.
[2016-12-08] MEDS ORDERED: OCTREOTIDE ACETATE 50 MCG/1 ML VIAL OR AMP ONE (00:20)
[2016-12-08] MEDS: OCTREOTIDE ACETATE 50 MCG/1 ML VIAL OR AMP IVP SCH ×4 (00:40→22:38)
[2016-12-08] MEDS: Sodium Chloride 0.9% 1,000 ML PRIMARY IV SCH (05:16)
[2016-12-08 06:40] LABS: HEMATOCRIT 24.9 % (42.0-52.0); HEMOGLOBIN 7.8 g/dL (14.0-18.0); MEAN CORPUSCULAR HEMOGLOBIN 26.4 PG (27-31); MEAN CORPUSCULAR HGB CONC 31.3 g/dL (33-37); MEAN PLATELET VOLUME 9.6 FL (7.4-12.2); RED BLOOD COUNT 2.96 10^6/uL (4.70-6.10)
[2016-12-08 06:57] LABS: BLOOD UREA NITROGEN 14 mg/dL (7-22); CALCIUM 7.5 mg/dL (8.7-10.7); EST GLOMERULAR FILTRATION > 60 (>60 ml/min/1.73m(2))
[2016-12-08 07:05] LABS: HEMOGLOBIN A1C 6.43 % (4.2-6.0)
[2016-12-08] MEDS: HYDROmorphone 2 MG/1 ML IVP PRN ×3 (07:38→20:52)
[2016-12-08] MEDS: Levofloxacin 750mg (Premix) 750 MG in Dextrose 1 BAG IV SCH (09:16)
[2016-12-08] MEDS: AmLODIPine Tab 5 MG TABLET PO SCH (09:16)
[2016-12-08] MEDS ORDERED: OCTREOTIDE ACETATE 50 MCG/1 ML VIAL OR AMP IVP SCH (12:04)
[2016-12-08] MEDS: NORMAL SALINE 10 ML SYRINGE FLUSH IVP PRN ×3 (14:18→22:37)
--- NOTE | 2016-12-08 16:06 | PDOC(PROG) ---
Date and Time of Service: 12/08/2016, 1604 Interval History: Still has pain in his abdomen. His tolerating clear liquids and does not have any hematemesis. Blood counts look about the same. CT scan results noted and I discussed with the patient's , and she agrees at this point and states do not do any further workup and keep the patient comfortable. Objective : Data - Labs CBC and BMP: 12/08/16 05:46 12/08/16 05:46 Labs - Last 24 Hours: Laboratory Results 12/08/16 Range/Units 05:46 WBC 8.54 (4.8-10.8) 10^3/uL RBC 2.96 L (4.70-6.10) 10^6/uL Hgb 7.8 L (14.0-18.0) g/dL Hct 24.9 L (42.0-52.0) % MCV 84.1 (80-90) FL MCH 26.4 L (27-31) PG MCHC 31.3 L (33-37) g/dL RDW Std Deviation 45.0 (39-50) fL RDW Coeff of Lucia 15.2 H (11.5-14.5) % Plt Count 210 (140-350) 10*3/uL MPV 9.6 (7.4-12.2) FL Sodium 135 (135-145) meq/L Potassium 3.4 L (3.8-5.2) meq/L Chloride 104 (98-112) meq/L Carbon Dioxide 25 (23-33) meq/L Anion Gap 6 (5-20) BUN 14 (7-22) mg/dL Creatinine 0.7 (0.70-1.50) mg/dL Estimated GFR > 60 (>60 ml/min/1.73m(2)) BUN/Creatinine Ratio 20.00 (6-20) Glucose 78 (78-110) mg/dL Mean Blood Glucose 128.119 mg/dL Hemoglobin A1c 6.43 H (4.2-6.0) % Calculated Osmolality 279.0 (267-292) mOsm/kg Calcium 7.5 L (8.7-10.7) mg/dL Objective : Exam - General General Appearance: No Acute Distress, Cooperative Additional General Exam Details: Vital Signs - Last Taken Temperature 97.8 F 12/08/16 11:12 Pulse Rate 87 12/08/16 11:12 Respiratory Rate 20 12/08/16 11:12 Blood Pressure 134/73 12/08/16 11:12 Pulse Ox 93 12/08/16 11:12 - Eye Eye Exam: No Scleral Icterus - Respiratory Respiratory Exam: Breathing Non Labored, Coarse Breath Sounds - Cardiovascular Cardiovascular Exam: RRR, No Murmur, No Clicks, No Gallops, No Rubs, No JVD - GI/Abdominal GI/Abdominal Exam: Normal Bowel Sounds, Non Tender (Nontender on my exam.), Non Distended, Soft - Extremities Extremities Exam: No Clubbing Present, No Edema Present, No Cyanosis Present - Neurological Neurological Exam: Alert, No Facial Droop, Speech Intact / Clear, Moves All Extremities Equally Assessment and Plan - Patient Problems (1) GI bleed Current Visit: Yes Status: Acute Comment: CT scan suggested possible esophageal lesion, and there is significant gastric thickening probably consistent with gastritis or perhaps there is an underlying gastric ulcer. Either way, does appear to be our reasons for this bleed, but it does appear to be stabilizing to some degree with hemoglobin consistently in the sevens range now. I discussed with his in detail, we both agree that the patient should not have any further workup due to his advanced dementia, poor quality of life, and no desire to live like this. Therefore we will continue with conservative measures of Protonix, I will titrate the octreotide, and hopefully if we can stabilize we can get him to twice a day Protonix in the next 24 hours or so. I will gradually and slowly advance the diet and when stabilized[facility] do not transfer to the hospital orders. If his pain escalates or a bleed develops there, patient's has requested that we treat primary symptoms of pain and discomfort only. Her name is Tri, [phone] Qualifiers: GI bleed type/associated pathology: unspecified gastrointestinal hemorrhage type Qualified Description: Gastrointestinal hemorrhage, unspecified gastrointestinal hemorrhage type Qualifier Code(s): (K92.2) Gastrointestinal hemorrhage, unspecified (2) COPD exacerbation Current Visit: Yes Status: Acute Comment: Stop Levaquin after last dose tomorrow. That will be a 5 day course. His respiratory status has improved significantly during his time here. (3) Acute blood loss anemia Current Visit: Yes Status: Acute Comment: Hold off on transfusion today. (4) Respiratory insufficiency Current Visit: Yes Status: Acute (5) Tachycardia Current Visit: Yes Status: Resolved (6) Alcoholic dementia Current Visit: Yes Status: Acute Qualifiers: Dementia behavioral disturbance: without behavioral disturbance Qualified Description: Dementia associated with alcoholism without behavioral disturbance Qualifier Code(s): (F10.97) Alcohol use, unspecified with alcohol-induced persisting dementia (7) History of tobacco abuse Current Visit: Yes Status: Acute (8) Urinary incontinence Current Visit: Yes Status: Acute Qualifiers: Urinary Incontinence type: unspecified incontinence Qualified Description: Urinary incontinence, unspecified type Qualifier Code(s): ( R32) Unspecified urinary incontinence - Assessment / Plan Additional Assessment/Plan Details: As above, continue proton pump inhibitor. This is on a continuous drip currently. Titrate octreotide I will add Lortab elixir for pain. Continue clear liquid diet and hopefully get into a soft diet tomorrow. If bleeding recurs, treat pain and discomfort from this, but no further workup.
[2016-12-08] MEDS: HYDROcodone/Acetaminophen 7.5/325mg/15ml cup PO PRN ×2 (17:09→22:37)
[2016-12-09] MEDS ORDERED: HYDROmorphone 2 MG/1 ML IVP PRN (00:18)
[2016-12-09] MEDS: NORMAL SALINE 10 ML SYRINGE FLUSH IVP PRN (00:45)
[2016-12-09] MEDS ORDERED: PANTOPRAZOLE IV 40 MG VIAL ONE (03:50)
[2016-12-09] MEDS: OCTREOTIDE ACETATE 50 MCG/1 ML VIAL OR AMP IVP SCH (07:09)
[2016-12-09 08:17] VITALS: RESP 16
[2016-12-09 09:51] LABS: HEMATOCRIT 26.8 % (42.0-52.0); HEMOGLOBIN 8.8 g/dL (14.0-18.0); MEAN CORPUSCULAR HGB CONC 32.8 g/dL (33-37); MEAN PLATELET VOLUME 8.4 FL (7.4-12.2); RED BLOOD COUNT 3.26 10^6/uL (4.70-6.10)
[2016-12-09] MEDS: Levofloxacin 750mg (Premix) 750 MG in Dextrose 1 BAG IV SCH (10:01)
[2016-12-09 10:05] LABS: BLOOD UREA NITROGEN 16 mg/dL (7-22); CALCIUM 7.8 mg/dL (8.7-10.7); EST GLOMERULAR FILTRATION > 60 (>60 ml/min/1.73m(2))
[2016-12-09] MEDS ORDERED: PANTOPRAZOLE 40 MG TABLET PO ONE (10:13)
[2016-12-09] MEDS ORDERED: POTASSIUM CHLORIDE 20 MEQ TAB PO ONE (10:51)
--- NOTE | 2016-12-09 11:27 | DCSUMMARY ---
Hospitalization Summary Admit Date: 12/05/16 Discharge Date: 12/09/16 Primary Diagnosis:: GI bleed Secondary Diagnosis:: COPD exacerbation, resolved Hospital Course: This is a 66-year-old male with severe alcoholic dementia who resides at [facility]. He was brought in in the setting of abdominal pain, recent vomiting, and apparently some shortness of breath. This presumed that he might have a pneumonia in the emergency room but that did not bear out with CT scan of the chest. He had some atelectasis findings. He had an oxygen requirement and had some coarse lung sounds and so we treated him initially for a COPD exacerbation. He developed melanotic stools and had coffee-ground emesis during the hospital stay here and his blood counts dropped from 12 hemoglobin to a hemoglobin of 7 or so. The patient rebounded in terms of his hemoglobin and is now at 8.8. I spoke to his in depth about this situation and to the patient's primary doctor as well. The patient is with advanced alcoholic dementia and does not want anything done extraordinarily, and we felt that it would be too much to do EGD and/or colonoscopy for workup or treatment of this bleed. We treated conservatively with Protonix and octreotide and the patient's bleeding seems to have slowed down and again the hemoglobin is actually improved at the time of discharge. He will need a lifelong proton pump inhibitor. His , Tri, may very well just have him not to be transported back from the care home in any condition or state in the future. The primary goal is to control the patient's pain and discomfort. I did do a CT scan of the abdomen and pelvis which showed that he may have an esophageal mass and had significant gastric thickening which I think is the source of his bleeding. Given improvement in these issues, but long-term prognosis remaining poor because of advanced dementia, patient is gives a very difficult history to take. He has been experiencing some abdominal pain. Aside from that I cannot get a reliable history. Assessment and Plan: 1. As per discharge assessments noted 2. Disposition: Patient is discharged back to [facility] 3. Condition on discharge, stable and improved. Long-term prognosis very poor 4. Diet: regular diet 5. Activities: resume normal activities 6. Follow-Up: 1. Primary care provider should see patient per reviewed for visits. 2. 7. Medications at the Time of Discharge: Home Medications Medication Instructions Recorded Confirmed Type Acetaminophen [Tylenol] 1 - 2 tab PO Q6H PRN tab 04/01/15 06/21/16 History Albuterol Neb Soln 0.083% 2.5 mg NEB QID PRN #1 vial.neb 06/22/16 Rx HYDROcodone/APAP 7.5/325 Soln 15 - 30 ml PO Q4H PRN #120 cup 12/09/16 Rx [Lortab 7.5 mg/325 mg Soln] Pantoprazole Sodium [Protonix] 40 mg PO BID #60 tab 12/09/16 Rx 8. Time, care, counseling and coordination of care for this discharge is greater than 30 minutes. Exam - Vitals Vital Signs: Vital Signs Temperature 98.1 F Temperature Source Temporal Artery Scan Pulse Rate [Apical] 86 Pulse Rate [Pulse Oximeter] 92 Pulse Rate [Telemetry] 151 Pulse Rate 127 Respiratory Rate 16 Blood Pressure [Right Arm] 125/74 Blood Pressure 132/84 Pulse Ox 94 Oxygen Flow Rate 1 Oxygen Delivery Method Oxymask Height 5 ft 6 in Weight 154 lb 11.2 oz - General General Appearance: POSITIVE: No Acute Distress, Cooperative - Eye Eye Exam: POSITIVE: No Scleral Icterus - Respiratory Respiratory Exam: POSITIVE: Breathing Non Labored, Coarse Breath Sounds - Cardiovascular Cardiovascular Exam: POSITIVE: RRR, No Murmur, No Clicks, No Gallops, No Rubs, No JVD - GI/Abdominal GI/Abdominal Exam: POSITIVE: Normal Bowel Sounds, Non Tender, Non Distended, Soft - Extremities Extremities Exam: POSITIVE: No Clubbing Present, No Edema Present, No Cyanosis Present - Neurological Neurological Exam: POSITIVE: Alert, No Facial Droop, Speech Intact / Clear, Moves All Extremities Equally Data Perinent Studies: Laboratory Results 12/05/16 12/05/16 12/05/16 Range/Units 04:59 05:00 05:26 WBC 18.98 H (4.8-10.8) 10^3/uL RBC 4.63 L (4.70-6.10) 10^6/uL Hgb 12.6 L (14.0-18.0) g/dL Hct 38.8 L (42.0-52.0) % MCV 83.8 (80-90) FL MCH 27.2 (27-31) PG MCHC 32.5 L (33-37) g/dL RDW Std Deviation 46.8 (39-50) fL RDW Coeff of Lucia 15.7 H (11.5-14.5) % Plt Count 330 (140-350) 10*3/uL MPV 9.7 (7.4-12.2) FL Immature Gran % (Auto) 0.3 (0-5) % Neut % (Auto) 79.9 (50-80) % Lymph % (Auto) 10.0 (10-50) % Howard % (Auto) 9.7 (5-15) % Eos % (Auto) 0 (0-8) % Baso % (Auto) 0.1 (0-1) % Immature Gran # (Auto) 0.05 10*3/UL Neut # (Auto) 15.17 10*3/UL Lymph # (Auto) 1.89 10*3/uL Howard # (Auto) 1.85 H (0.3-0.8) 10*3/UL Eos # (Auto) 0 10*3/UL Baso # (Auto) 0.02 10*3/UL WBC Morphology Comment Normal morphology (NORM) Plt Morphology Comment Normal morphology (NORM) RBC Morph Comment Normal morphology (NORM) ABG pH 7.40 (7.35-7.45) ABG pCO2 32 L (34-38) MMHG ABG pO2 70 (65-75) MMHG ABG HCO3 20 L (22-26) ABG Total CO2 20 L (23-27) MMOL/L ABG O2 Saturation 94 (90-100) % ABG Base Excess -5 L (-2-2) MMOL/L Kevin Test Y FiO2 10lpm simple mask Sodium 148 H (135-145) meq/L Potassium 4.3 (3.8-5.2) meq/L Chloride 111 (98-112) meq/L Carbon Dioxide 22 L (23-33) meq/L Anion Gap 15 (5-20) BUN 42 H (7-22) mg/dL Creatinine 0.9 (0.70-1.50) mg/dL Estimated GFR > 60 (>60 ml/min/1.73m(2)) BUN/Creatinine Ratio 46.66 H (6-20) Glucose 178 H (78-110) mg/dL Mean Blood Glucose mg/dL Hemoglobin A1c (4.2-6.0) % Calculated Osmolality 320.0 H (267-292) mOsm/kg Lactic Acid 2.1 (0.70-2.10) MMOL/L Calcium 8.5 L (8.7-10.7) mg/dL Total Bilirubin 0.4 (0.3-1.2) mg/dL AST 21 (21-57) IU/L ALT 18 L (21-72) IU/L Alkaline Phosphatase 86 (38-126) IU/L Troponin I < 0.012 (< 0.040) ng/mL Total Protein 6.8 (6.1-8.0) g/dL Albumin 3.8 (3.5-4.8) g/dL Globulin 3.0 (2.50-4.10) g/dL Albumin/Globulin Ratio 1.20 L (1.3-2.0) mg/g Stool Occult Blood (NEGATIVE) 12/06/16 12/06/16 12/07/16 Range/Units 14:49 15:34 05:45 WBC 13.99 H 10.56 (4.8-10.8) 10^3/uL RBC 3.42 L 2.87 L (4.70-6.10) 10^6/uL Hgb 9.1 L 7.7 L (14.0-18.0) g/dL Hct 28.8 L 24.4 L (42.0-52.0) % MCV 84.2 85.0 (80-90) FL MCH 26.6 L 26.8 L (27-31) PG MCHC 31.6 L 31.6 L (33-37) g/dL RDW Std Deviation 45.8 46.3 (39-50) fL RDW Coeff of Lucia 15.4 H 15.5 H (11.5-14.5) % Plt Count 239 224 (140-350) 10*3/uL MPV 9.4 10.0 (7.4-12.2) FL Immature Gran % (Auto) (0-5) % Neut % (Auto) (50-80) % Lymph % (Auto) (10-50) % Howard % (Auto) (5-15) % Eos % (Auto) (0-8) % Baso % (Auto) (0-1) % Immature Gran # (Auto) 10*3/UL Neut # (Auto) 10*3/UL Lymph # (Auto) 10*3/uL Howard # (Auto) (0.3-0.8) 10*3/UL Eos # (Auto) 10*3/UL Baso # (Auto) 10*3/UL WBC Morphology Comment (NORM) Plt Morphology Comment (NORM) RBC Morph Comment (NORM) ABG pH (7.35-7.45) ABG pCO2 (34-38) MMHG ABG pO2 (65-75) MMHG ABG HCO3 (22-26) ABG Total CO2 (23-27) MMOL/L ABG O2 Saturation (90-100) % ABG Base Excess (-2-2) MMOL/L Kevin Test FiO2 Sodium 142 143 (135-145) meq/L Potassium 3.5 L 3.9 (3.8-5.2) meq/L Chloride 110 112 (98-112) meq/L Carbon Dioxide 23 23 (23-33) meq/L Anion Gap 9 8 (5-20) BUN 21 20 (7-22) mg/dL Creatinine 0.6 L 0.7 (0.70-1.50) mg/dL Estimated GFR > 60 > 60 (>60 ml/min/1.73m(2)) BUN/Creatinine Ratio 35.00 H 28.57 H (6-20) Glucose 166 H 125 H (78-110) mg/dL Mean Blood Glucose mg/dL Hemoglobin A1c (4.2-6.0) % Calculated Osmolality 300.0 H 299.0 H (267-292) mOsm/kg Lactic Acid (0.70-2.10) MMOL/L Calcium 8.1 L 7.8 L (8.7-10.7) mg/dL Total Bilirubin (0.3-1.2) mg/dL AST (21-57) IU/L ALT (21-72) IU/L Alkaline Phosphatase (38-126) IU/L Troponin I (< 0.040) ng/mL Total Protein (6.1-8.0) g/dL Albumin (3.5-4.8) g/dL Globulin (2.50-4.10) g/dL Albumin/Globulin Ratio (1.3-2.0) mg/g Stool Occult Blood Positive (NEGATIVE) 12/08/16 12/09/16 Range/Units 05:46 09:47 WBC 8.54 12.19 H (4.8-10.8) 10^3/uL RBC 2.96 L 3.26 L (4.70-6.10) 10^6/uL Hgb 7.8 L 8.8 L (14.0-18.0) g/dL Hct 24.9 L 26.8 L (42.0-52.0) % MCV 84.1 82.2 (80-90) FL MCH 26.4 L 27.0 (27-31) PG MCHC 31.3 L 32.8 L (33-37) g/dL RDW Std Deviation 45.0 42.0 (39-50) fL RDW Coeff of Lucia 15.2 H 14.7 H (11.5-14.5) % Plt Count 210 254 (140-350) 10*3/uL MPV 9.6 8.4 (7.4-12.2) FL Immature Gran % (Auto) (0-5) % Neut % (Auto) (50-80) % Lymph % (Auto) (10-50) % Howard % (Auto) (5-15) % Eos % (Auto) (0-8) % Baso % (Auto) (0-1) % Immature Gran # (Auto) 10*3/UL Neut # (Auto) 10*3/UL Lymph # (Auto) 10*3/uL Howard # (Auto) (0.3-0.8) 10*3/UL Eos # (Auto) 10*3/UL Baso # (Auto) 10*3/UL WBC Morphology Comment (NORM) Plt Morphology Comment (NORM) RBC Morph Comment (NORM) ABG pH (7.35-7.45) ABG pCO2 (34-38) MMHG ABG pO2 (65-75) MMHG ABG HCO3 (22-26) ABG Total CO2 (23-27) MMOL/L ABG O2 Saturation (90-100) % ABG Base Excess (-2-2) MMOL/L Kevin Test FiO2 Sodium 135 135 (135-145) meq/L Potassium 3.4 L 3.4 L (3.8-5.2) meq/L Chloride 104 100 (98-112) meq/L Carbon Dioxide 25 26 (23-33) meq/L Anion Gap 6 9 (5-20) BUN 14 16 (7-22) mg/dL Creatinine 0.7 0.8 (0.70-1.50) mg/dL Estimated GFR > 60 > 60 (>60 ml/min/1.73m(2)) BUN/Creatinine Ratio 20.00 20.00 (6-20) Glucose 78 89 (78-110) mg/dL Mean Blood Glucose 128.119 mg/dL Hemoglobin A1c 6.43 H (4.2-6.0) % Calculated Osmolality 279.0 279.0 (267-292) mOsm/kg Lactic Acid (0.70-2.10) MMOL/L Calcium 7.5 L 7.8 L (8.7-10.7) mg/dL Total Bilirubin (0.3-1.2) mg/dL AST (21-57) IU/L ALT (21-72) IU/L Alkaline Phosphatase (38-126) IU/L Troponin I (< 0.040) ng/mL Total Protein (6.1-8.0) g/dL Albumin (3.5-4.8) g/dL Globulin (2.50-4.10) g/dL Albumin/Globulin Ratio (1.3-2.0) mg/g Stool Occult Blood (NEGATIVE) Patient Problems - Patient Problem List (1) GI bleed Current Visit: Yes Status: Acute Qualifiers: GI bleed type/associated pathology: unspecified gastrointestinal hemorrhage type Qualified Description: Gastrointestinal hemorrhage, unspecified gastrointestinal hemorrhage type Qualifier Code(s): (K92.2) Gastrointestinal hemorrhage, unspecified (2) COPD exacerbation Current Visit: Yes Status: Acute (3) Acute blood loss anemia Current Visit: Yes Status: Acute (4) Alcoholic dementia Current Visit: Yes Status: Acute Qualifiers: Dementia behavioral disturbance: without behavioral disturbance Qualified Description: Dementia associated with alcoholism without behavioral disturbance Qualifier Code(s): (F10.97) Alcohol use, unspecified with alcohol-induced persisting dementia (5) History of tobacco abuse Current Visit: Yes Status: Acute (6) Urinary incontinence Current Visit: Yes Status: Acute Qualifiers: Urinary Incontinence type: unspecified incontinence Qualified Description: Urinary incontinence, unspecified type Qualifier Code(s): ( R32) Unspecified urinary incontinence
[2016-12-09 12:22] VITALS: TEMP 97.8
[2016-12-09] MEDS ORDERED: PANTOPRAZOLE 40 MG TABLET PO SCH (21:00)
== END 2016-12-09 13:01 | DRG 378 ==
LOC: ER 04:30 → MED/SURG 08:27
PROVIDERS: ADMIT Family Medicine; ATTEND Family Medicine
DX: J18.9 Pneumonia, unspecified organism (principal); F03.90 Unspecified dementia, unspecified severity, without behavioral disturbance, psychotic disturbance, mood disturbance, and anxiety; K92.2 Gastrointestinal hemorrhage, unspecified; J44.1 Chronic obstructive pulmonary disease with (acute) exacerbation; D62 Acute posthemorrhagic anemia; F10.97 Alcohol use, unspecified with alcohol-induced persisting dementia; R32 Unspecified urinary incontinence; R06.89 Other abnormalities of breathing; R00.0 Tachycardia, unspecified
CPT/HCPCS: 36415; 36600; 71020; 74178; 80053; 82803; 83605; 84484; 85025; 87040; 94640; 96365; 99285 ×2; J7620; 31720; 70450; 71275; 74177; 80048; 82272; 83036; 85027; 87804; 93005; 93010; 94761; J1170; J1335; J3490; J7030; J7050